=== PATIENT | female | born 2000 | race Caucasian/White ===

== ENCOUNTER 2019-12-15 09:53 | Emergency (ER) | payer OTHER ==
[2019-12-15] MEDS ORDERED: LIDOCAINE 1% MPF 5 ML VIAL ONE (10:09)
--- NOTE | 2019-12-15 10:32 | ER ---
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 Bleeding controlled. Coronavirus screen: Proceed with normal triage. Ebola Screen: No symptoms or risks identified at this time. Complicating Factors: There are no complicating factors for this patient. Initial Sepsis Screen: Does the patient meet any 2 criteria? No. Patient's initial sepsis screen is negative. Does the patient have a suspected source of infection? No. Patient's initial sepsis screen is negative. Risk Assessment: Do you want to hurt yourself or someone else? Patient reports no desire to harm self or others. Onset of symptoms was December 15, 2019. 09:55 Method Of Arrival: Ambulatory 09:55 Acuity: CODIE 4 hb Triage Assessment: 09:56 General: Appears in no apparent distress. Behavior is cooperative, anxious, crying. hb Pain: Pain currently is 8 out of 10 on a pain scale. EENT: No signs and/or symptoms were reported regarding the EENT system. Neuro: Level of Consciousness is awake, alert, obeys commands, Oriented to person, place, time, situation. Cardiovascular: Patient's skin is warm and dry. Respiratory: Respiratory effort is even, unlabored, Respiratory pattern is regular, symmetrical. GI: No signs and/or symptoms were reported involving the gastrointestinal system. : No signs and/or symptoms were reported regarding the genitourinary system. Derm: Skin is pink, warm \T\ dry. Musculoskeletal: No signs and/or symptoms reported regarding the musculoskeletal system. Injury Description: Laceration sustained to palmar aspect of proximal phalanx of left thumb is clean, 2.6 to 7.5 cm long, not bleeding, was sustained 30-60 minutes ago. 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 - Social history:: Smoking status: Patient denies any tobacco usage or history of. Screenin:02 Abuse screen: Denies threats or abuse. Denies injuries from another. Nutritional hb screening: No deficits noted. Tuberculosis screening: No symptoms or risk factors identified. Fall Risk None identified. Assessment: 09:58 General: see triage. hb 10:02 Reassessment: Dr. Morelos at bedside for laceration repair. hb 10:40 Reassessment: PT D/C HOME AMBULATORY, DX WITH SIMPLE LACERATION WITHOUT FOREIGN BODY. bp Vital Signs: 09:55 BP 119 / 88; Pulse 16; Resp 94; Temp 98.3; Pulse Ox 100% ; Weight 54.43 kg; Height 5 hb ft. 4 in. (162.56 cm); Pain 8/10; 10:40 BP 126 / 78; Pulse 91; Resp 17; Temp 98.5; Pulse Ox 100% ; bp 09:55 Body Mass Index 20.60 (54.43 kg, 162.56 cm) hb ED Course: 09:55 Patient arrived in ED. hb 09:56 Inocente Morelos MD is Attending Physician. ps1 09:57 Triage completed. hb 09:57 Arm band placed on. hb 10:02 Patient has correct armband on for positive identification. Bed in low position. Call light in reach. 10:08 Nikky Sanders RN is Primary Nurse. hb 10:15 Assist provider with laceration repair on palmar aspect of proximal phalanx of left bp thumb that was 2.5 cm. or less using sutures. Set up tray. Performed by Inocente Morelos MD Dressed with 4X4s, Patient tolerated well. 10:40 Patient did not have IV access during this emergency room visit. bp Administered Medications: No medications were administered Outcome: 10:31 Discharge ordered by . ps1 10:40 Discharged to home ambulatory. bp 10:40 Condition: stable 10:40 Discharge instructions given to patient, Instructed on discharge instructions, follow up and referral plans. wound care, Demonstrated understanding of instructions, follow-up care, wound care. 10:43 Patient left the ED. bp Signatures: Nikky Sanders, RN RN Dashawn Lopez RN RN bp Singer, Phillip, MD MD ps1
--- NOTE | 2019-12-15 10:32 | EDPHYS ---
Physician Documentation [facility] Name: Elena Phipps Age: 19 yrs Sex: Female : 2000 Arrival Date: 12/15/2019 Time: 09:55 Bed 6 Private MD: ED Physician Inocente Morelos HPI: 12/14 10:25 This 19 yrs old Female presents to ER via Ambulatory with complaints of ps1 Laceration To Hand. 10:25 The patient has a laceration related to: cooking, from a sharp metal object, occurred ps1 at home, and there are no complicating factors. The injury was accidental. The laceration(s) is(are) located on the left hand and palmar aspect of proximal phalanx of left thumb. Onset: The symptoms/episode began/occurred just prior to arrival. Associated signs and symptoms: The patient has no apparent associated signs or symptoms, Pertinent negatives: heavy bleeding, numbness distal to injury. Tetanus UTD. . 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 - Social history:: Smoking status: Patient denies any tobacco usage or history of. ROS: 10:25 Constitutional: Negative for fever, chills, and weight loss, Eyes: Negative for injury, ps1 pain, redness, and discharge. 10:25 MS/extremity: Positive for injury or acute deformity, laceration. 10:25 Skin: Negative for cellulitis, FB presence. 10:25 Neuro: Negative for numbness, weakness. Exam: 10:25 Constitutional: This is a well developed, well nourished patient who is awake, alert, ps1 and in no acute distress. Head/Face: Normocephalic, atraumatic. Eyes: Pupils equal round and reactive to light, extra-ocular motions intact. Lids and lashes normal. Conjunctiva and sclera are non-icteric and not injected. 10:25 Cardiovascular: Rate: normal. 10:25 Respiratory: the patient does not display signs of respiratory distress, Respirations: normal. 10:25 Musculoskeletal/extremity: Extremities: grossly normal except: noted in the palmar aspect of proximal phalanx of left thumb: laceration. 10:25 Neuro: Motor: is normal, distal to wound. , Sensation: is normal. Vital Signs: 09:55 BP 119 / 88; Pulse 16; Resp 94; Temp 98.3; Pulse Ox 100% ; Weight 54.43 kg; Height 5 hb ft. 4 in. (162.56 cm); Pain 8/10; 10:40 BP 126 / 78; Pulse 91; Resp 17; Temp 98.5; Pulse Ox 100% ; bp 09:55 Body Mass Index 20.60 (54.43 kg, 162.56 cm) hb Laceration: 10:25 Wound Repair of 3cm ( 1.2in ) subcutaneous laceration to palmar aspect of proximal ps1 phalanx of left thumb. Distal neuro/vascular/tendon intact. Anesthesia: Digital block administered with 4 mls of 1% lidocaine. Wound prep: Moderate cleansing, Wound explored minimally. Skin closed with 4 4-0 Prolene using simple sutures and sterile technique. Dressed with 4x4's, Kane, finger splint for protection. Patient tolerated well. MDM: 10:25 Differential diagnosis: superficial laceration, tendon injury, vascular injury. Data ps1 reviewed: vital signs, nurses notes. Counseling: I had a detailed discussion with the patient and/or guardian regarding: the historical points, exam findings, and any diagnostic results supporting the discharge/admit diagnosis, to return to the emergency department if symptoms worsen or persist or if there are any questions or concerns that arise at home, especially signs of infection, loss of movement, popping or worsening of condition, or if other symptoms arise as documented in the discharge instructions. . 10:31 Patient medically screened. ps1 Administered Medications: No medications were administered Disposition: 12/15/19 10:31 Discharged to Home. Impression: left hand laceration. - Condition is Stable. - Discharge Instructions: Laceration Care, Adult, [id number]. - Medication Reconciliation Form, Thank You Letter, Antibiotic Education, Prescription Opioid Use form. - Follow up: Emergency Department; When: 10 - 14 days; Reason: Fever > 102 F, Worsening of condition, Staple/Suture removal. Follow up: Private Physician; When: As needed; Reason: Further diagnostic work-up, Recheck today's complaints, Staple/Suture removal, Re-evaluation by your physician. - Problem is new. - Symptoms have improved. Signatures: Nikky Sanders RN RN hb Dashawn Santos, RN RN bp Inocente Morelos MD MD ps1 Corrections: (The following items were deleted from the chart) 10:43 10:31 12/15/2019 10:31 Discharged to Home. Impression: left hand laceration. Condition bp is Stable. Forms are Medication Reconciliation Form, Thank You Letter, Antibiotic Education, Prescription Opioid Use. Follow up: Emergency Department; When: 10 - 14 days; Reason: Fever > 102 F, Worsening of condition, Staple/Suture removal. Follow up: Private Physician; When: As needed; Reason: Further diagnostic work-up, Recheck today's complaints, Staple/Suture removal, Re-evaluation by your physician. Problem is new. Symptoms have improved. ps1
[2019-12-15 11:04] VITALS: BP 126/78; TEMP 98.5; O2SAT 100
== END 2019-12-15 10:43 | disposition home or self-care (01) ==
LOC: ER 09:53
PROC: 0JQK0ZZ Repair Left Hand Subcutaneous Tissue and Fascia, Open Approach (ICD-10-PCS; principal; 2019-12-15)
DX: S61.012A Laceration without foreign body of left thumb without damage to nail, initial encounter (principal); W26.9XXA Contact with unspecified sharp object(s), initial encounter; Y93.G3 Activity, cooking and baking; Y92.000 Kitchen of unspecified non-institutional (private) residence as the place of occurrence of the external cause
CPT/HCPCS: 99283

== ENCOUNTER 2019-12-29 16:38 | Emergency (ER) | payer OTHER ==
--- OUTSIDE RECORDS SUMMARY | 2019-12-29 16:40 | XMS REPORT | Continuity of Care Document ---
:2000 Author Organization [facility] t Address [address] [place] [address] Care Team Providers Name Role Phone [place] Ernie BRYSON Attending Clinician Mauricio LING Attending Clinician Problems This patient has no known problems. Allergies, Adverse Reactions, Alerts This patient has no known allergies or adverse reactions. Medications This patient has no known medications. Procedures This patient has no known procedures. Encounters Start End Encounter Admission Attending Care Care Encounter Source Date/Time Date/Time Type Type Clinicians Facility Department ID 2019-09-28 2019-09-28 Telephone Nhi, LUIS [id number] 00:00:00 00:00:00 [facility] [id number] [facility] [id number] 2019-09-11 2019-09-11 Telephone [place], [facility]IS [id number] 00:00:00 00:00:00 [facility] [id number] [facility] [id number] 2019-07-01 2019-07-06 Office [facility] Martínez [facility] [id number] 15:09:33 11:40:15 Visit PRIMARY [id number] CARE [id number] [place] [id number] Results This patient has no known results.
--- NOTE | 2019-12-29 16:52 | EDPHYS ---
Physician Documentation [facility] Name: Elena Phipps Age: 19 yrs Sex: Female : 2000 Arrival Date: 12/29/2019 Time: 16:42 Bed 24 Private MD: ED Physician Evens Wade HPI: 12/28 16:56 This 19 yrs old Female presents to ER via Ambulatory with complaints of kb Suture Removal. 16:56 The patient has sutures on the palmar aspect of proximal phalanx of left thumb. kb Previous treatment: The patient was initially treated 14 day(s) ago, the care was rendered at [facility]. Sutures/ton progress: The patient has no c/o's. The wound is well-healing with no redness, swelling, discharge, or dehiscence reported. The patient has not experienced similar symptoms in the past. The patient has not recently seen a physician. 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 - Social history:: Smoking status: Patient denies any tobacco usage or history of. ROS: 16:56 Constitutional: Negative for fever, chills, and weight loss, Cardiovascular: Negative kb for chest pain, palpitations, and edema, Respiratory: Negative for shortness of breath, cough, wheezing, and pleuritic chest pain, Abdomen/GI: Negative for abdominal pain, nausea, vomiting, diarrhea, and constipation, MS/Extremity: Negative for injury and deformity, Neuro: Negative for headache, weakness, numbness, tingling, and seizure. 16:56 Skin: Positive for of the palmar aspect of proximal phalanx of left thumb, sutures in place. Exam: 16:56 Constitutional: This is a well developed, well nourished patient who is awake, alert, kb and in no acute distress. Head/Face: Normocephalic, atraumatic. Chest/axilla: Normal chest wall appearance and motion. Nontender with no deformity. No lesions are appreciated. Cardiovascular: Regular rate and rhythm with a normal S1 and S2. No gallops, murmurs, or rubs. Normal PMI, no JVD. No pulse deficits. Respiratory: Lungs have equal breath sounds bilaterally, clear to auscultation and percussion. No rales, rhonchi or wheezes noted. No increased work of breathing, no retractions or nasal flaring. Abdomen/GI: Soft, non-tender, with normal bowel sounds. No distension or tympany. No guarding or rebound. No evidence of tenderness throughout. MS/ Extremity: Pulses equal, no cyanosis. Neurovascular intact. Full, normal range of motion. Neuro: Awake and alert, GCS 15, oriented to person, place, time, and situation. Cranial nerves II-XII grossly intact. Motor strength 5/5 in all extremities. Sensory grossly intact. Cerebellar exam normal. Normal gait. 16:56 Skin: Wound recheck: Suture laceration closure: the wound is healing well, the edges are well approximated, no evidence of dehiscence, no drainage, no erythema, no swelling. Vital Signs: 16:47 BP 113 / 74; Pulse 86; Resp 15 S; Temp 98(TE); Pulse Ox 100% on R/A; Weight 54.43 kg ca1 (R); Height 5 ft. 4 in. (162.56 cm) (R); 16:47 Body Mass Index 20.60 (54.43 kg, 162.56 cm) ca1 Procedures: 16:56 Suture/Staple removal: Removed 4 sutures, from palmar aspect of proximal phalanx of kb left thumb, site appears well healed, Patient tolerated well. MDM: 16:50 Patient medically screened. kb 16:57 Data reviewed: vital signs, nurses notes. Data interpreted: Pulse oximetry: on room air kb is 100 %. Interpretation: normal. Counseling: I had a detailed discussion with the patient and/or guardian regarding: the historical points, exam findings, and any diagnostic results supporting the discharge/admit diagnosis, the need for outpatient follow up, a family practitioner, to return to the emergency department if symptoms worsen or persist or if there are any questions or concerns that arise at home. Administered Medications: No medications were administered Disposition: 18:17 Co-signature as Attending Physician, Evens Wade MD. rn Disposition: 12/29/19 16:51 Discharged to Home. Impression: Encounter for removal of sutures. - Condition is Stable. - Discharge Instructions: Suture Removal, Care After. - Medication Reconciliation Form, Thank You Letter, Antibiotic Education, Prescription Opioid Use form. - Follow up: Emergency Department; When: As needed; Reason: Worsening of condition. Follow up: Private Physician; When: 2 - 3 days; Reason: Recheck today's complaints, Continuance of care, Re-evaluation by your physician. Signatures: Joyce Vega, FLOATLIGHT LOADING SUPERVISOR-C FLOATLIGHT LOADING SUPERVISOR-Ckb Evens Wade MD MD rn Acob, GRACIE Camp RN ca1 Corrections: (The following items were deleted from the chart) 16:52 16:51 12/29/2019 16:51 Discharged to Home. Impression: Encounter for removal of ca1 sutures. Condition is Stable. Forms are Medication Reconciliation Form, Thank You Letter, Antibiotic Education, Prescription Opioid Use. Follow up: Emergency Department; When: As needed; Reason: Worsening of condition. Follow up: Private Physician; When: 2 - 3 days; Reason: Recheck today's complaints, Continuance of care, Re-evaluation by your physician. kb
--- NOTE | 2019-12-29 16:52 | ER ---
Nurse's Notes [facility] Name: Elena Phipps Age: 19 yrs Sex: Female : 2000 Arrival Date: 12/29/2019 Time: 16:42 Bed 24 Private MD: Diagnosis: Encounter for removal of sutures Presentation: 12/28 16:47 Chief complaint: Patient states: Suture removal on Lac repair on L thumb done 2 weeks ca1 ago. Wound appears, dry intact and healing well. Coronavirus screen: Patient denies a cough. Patient denies shortness of breath or difficulty breathing. Patient denies measured and/or subjective temperature greater than 100.4F prior to today's visit. Patient denies travel on a cruise ship or to a country the [facility] currently lists as an affected area. Patient denies contact with known and/or suspected case of COVID-19. Proceed with normal triage. Ebola Screen: Patient negative for fever greater than or equal to 101.5 degrees Fahrenheit, and additional compatible Ebola Virus Disease symptoms Patient denies exposure to infectious person. Patient denies travel to an Ebola-affected area in the 21 days before illness onset. No symptoms or risks identified at this time. Initial Sepsis Screen: Does the patient meet any 2 criteria? No. Patient's initial sepsis screen is negative. Does the patient have a suspected source of infection? No. Patient's initial sepsis screen is negative. Risk Assessment: Do you want to hurt yourself or someone else? Patient reports no desire to harm self or others. Onset of symptoms was December 29, 2019. 16:47 Method Of Arrival: Ambulatory ca1 16:47 Acuity: CODIE 5 ca1 Triage Assessment: 16:50 General: Appears in no apparent distress. comfortable, Behavior is calm, cooperative, ca1 appropriate for age. Pain: Denies pain. Neuro: Level of Consciousness is awake, alert, obeys commands, Oriented to person, place, time, situation. Derm: Skin is intact, is healthy with good turgor, Skin is pink, warm \T\ dry. Musculoskeletal: Circulation, motion, and sensation intact. Capillary refill < 3 seconds. 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 - Social history:: Smoking status: Patient denies any tobacco usage or history of. Screenin:51 Abuse screen: Denies threats or abuse. Denies injuries from another. Nutritional ca1 screening: No deficits noted. Tuberculosis screening: No symptoms or risk factors identified. Fall Risk None identified. Assessment: 16:51 Reassessment: See triage notes. ca1 Vital Signs: 16:47 BP 113 / 74; Pulse 86; Resp 15 S; Temp 98(TE); Pulse Ox 100% on R/A; Weight 54.43 kg ca1 (R); Height 5 ft. 4 in. (162.56 cm) (R); 16:47 Body Mass Index 20.60 (54.43 kg, 162.56 cm) ca1 ED Course: 16:42 Patient arrived in ED. fj1 16:44 Joyce Vega FNP-C is [facility]. kb 16:44 Evens Wade MD is Attending Physician. kb 16:49 Triage completed. ca1 16:49 Arm band placed on right wrist. ca1 16:50 Removal of Removed sutures from palmar aspect of proximal phalanx of left thumb Suture ca1 site is well healed Patient tolerated well. 16:51 Zoë Whitlock RN is Primary Nurse. ca1 16:51 Patient has correct armband on for positive identification. ca1 16:51 No provider procedures requiring assistance completed. Patient did not have IV access ca1 during this emergency room visit. Administered Medications: No medications were administered Outcome: 16:51 Discharge ordered by MD. kb 16:52 Discharged to home ambulatory. ca1 16:52 Condition: stable 16:52 Discharge instructions given to patient, Instructed on discharge instructions, follow up and referral plans. Demonstrated understanding of instructions, follow-up care. 16:52 Patient left the ED. ca1 Signatures: Joyce Vega FNP-C FNP-Ckb Acob, Cheryl, RN RN ca1 Flavio Mills fj1
[2019-12-30 06:42] VITALS: BP 113/74; TEMP 98; O2SAT 100
== END 2019-12-29 16:52 | disposition home or self-care (01) ==
LOC: ER 16:38
DX: Z48.02 Encounter for removal of sutures (principal)
CPT/HCPCS: 99281